=== PATIENT | female | born 1995 ===

== ENCOUNTER 2016-11-11 19:10 | Emergency (ER) | payer MEDICAID ==
[2016-11-11 19:11] VITALS: BMI 32.3
[2016-11-11] MEDS ORDERED: Sodium Chloride 0.9% 1,000 ML IV ONE (20:03)
--- NOTE | 2016-11-11 20:05 | C.PDOC ---
Chief Complaint (Nursing): Dizziness/Lightheaded Past Medical History Vital Signs: Last Vital Signs Temp 98.9 F 11/11/16 19:15 Pulse 105 H 11/11/16 19:15 Resp 16 11/11/16 19:15 BP 123/83 11/11/16 19:15 Pulse Ox 100 11/11/16 19:15 Family History: States: Unknown Family Hx - Social History Hx Tobacco Use: No Hx Alcohol Use: No Hx Substance Use: No - Immunization History Hx Tetanus Toxoid Vaccination: Yes Hx Influenza Vaccination: No Hx Pneumococcal Vaccination: No ED Course And Treatment O2 Sat by Pulse Oximetry: 100
--- NOTE | 2016-11-11 20:07 | C.PDOC ---
History Of Present Illness 21 year old female presents to the ED with complaints of dizziness and room- spinning sensation beginning five hours ago. Patient notes nausea but denies headache or vomiting. Chief Complaint (Nursing): Dizziness/Lightheaded History Per: Patient History/Exam Limitations: no limitations Onset/Duration Of Symptoms: Hrs Current Symptoms Are (Timing): Still Present Past Medical History Reviewed: Historical Data, Nursing Documentation, Vital Signs Vital Signs: Last Vital Signs Temp 98.9 F 11/11/16 19:15 Pulse 105 H 11/11/16 19:15 Resp 16 11/11/16 19:15 BP 123/83 11/11/16 19:15 Pulse Ox 100 11/11/16 21:04 Family History: States: Unknown Family Hx - Social History Hx Tobacco Use: No Hx Alcohol Use: No Hx Substance Use: No - Immunization History Hx Tetanus Toxoid Vaccination: Yes Hx Influenza Vaccination: No Hx Pneumococcal Vaccination: No Review Of Systems Constitutional: Negative for: Fever, Chills Gastrointestinal: Positive for: Nausea. Negative for: Vomiting, Abdominal Pain , Diarrhea Neurological: Positive for: Dizziness. Negative for: Headache Physical Exam - Physical Exam Appears: Non-toxic, No Acute Distress Skin: Warm, Dry Head: Normacephalic Eye(s): bilateral: Other (some nystagmus ) Ear(s): Bilateral: Normal Neck: Normal ROM, Supple Chest: Symmetrical, No Deformity Cardiovascular: Rhythm Regular, No Murmur Respiratory: No Accessory Muscle Use, No Rales, No Rhonchi, No Stridor, No Wheezing Gastrointestinal/Abdominal: No Soft, No Tenderness, No Distention, No Guarding, No Rebound Extremity: Normal ROM, No Tenderness Neurological/Psych: Oriented x3, Other (no focal deficits) ED Course And Treatment - Laboratory Results Result Diagrams: 11/11/16 20:33 11/11/16 20:33 ECG: Interpreted By Me, Viewed By Me ECG Rhythm: Sinus Tachycardia ECG Interpretation: No Acute Changes, Abnormal Interpretation Of ECG: presence of Q wave in inferior leads, abnormal tracings Rate From EC O2 Sat by Pulse Oximetry: 100 Pulse Ox Interpretation: Normal Progress Note: [facility]. [facility]. Final Radiology Report [id number]. Name: MATTHEW MCWILLIAMS Age: 21Years F Date: 11/11/2016. SSN: [id number] : 1995. Study: CT HEAD WO Requesting Physician: Tommy Davenport. Images: 181. Addl Studies: Provided Clinical History: Headache. CONFIDENTIALITY STATEMENT. This transmission is confidential and is intended to be a privileged communication. It is intended only for the use of the addressee. Access to this. message by anyone else is unauthorized. If you are not the intended recipient, any disclosure, copying, distribution or any action taken, or omitted to. be taken in reliance on it is prohibited and may be unlawful. If you received this communication in error, please notify us by telephone, so that return. of this document to us can be arranged. Page 1 of 2. EXAM: CT Head Without Intravenous Contrast. CLINICAL HISTORY: 21 years old, female; Pain; Headache; Headache not specified. TECHNIQUE: Axial computed tomography images of the head/brain without intravenous contrast. This CT exam. was performed using one or more of the following dose reduction techniques: automated exposure. control , adjustment of the mA and/or kV according to patient size, and/or use of iterative. reconstruction technique. COMPARISON: No relevant prior studies available. FINDINGS: Brain: No intracranial hemorrhage. No mass. No definite edema. Ventricles: No hydrocephalus. Bones/joints: No acute fracture. Soft tissues: Unremarkable. Sinuses: No acute sinusitis. Mastoid air cells: No mastoid effusion. Orbits: Unremarkable as visualized. IMPRESSION: 1. No acute intracranial abnormality. 2. Incidental/non-acute findings are described above. [facility]. [facility]. Final Radiology Report [id number]. Name: MATTHEW MCWILLIAMS Age: 21Years F Date: 11/11/2016. SSN : [id number] : 1995. Study: CT HEAD WO Requesting Physician: Tommy Davenport. Images: 181. Addl Studies: Provided Clinical History: Headache. CONFIDENTIALITY STATEMENT. This transmission is confidential and is intended to be a privileged communication. It is intended only for the use of the addressee. Access to this. message by anyone else is unauthorized. If you are not the intended recipient, any disclosure, copying, distribution or any action taken, or omitted to. be taken in reliance on it is prohibited and may be unlawful. If you received this communication in error, please notify us by telephone, so that return. of this document to us can be arranged. Page 2 of 2. Thank you for allowing us to participate in the care of your patient. Dictated and Authenticated by: yK Ross MD. 2016 9:00 PM Eastern Time ([place] & [place]) Disposition Counseled Patient/Family Regarding: Diagnosis - Disposition Referrals: [facility] [Outside] Disposition: HOME/ ROUTINE Disposition Time: 21:54 Condition: STABLE Prescriptions: Meclizine [Antivert] 25 mg PO Q6 #30 tab Instructions: Vertigo (ED) - POA Present On Arrival: None - Clinical Impression Clinical Impression: Vertigo - Scribe Statement The provider has reviewed the documentation as recorded by the Scribe Johanna Banks All medical record entries made by the Scribe were at my direction and personally dictated by me. I have reviewed the chart and agree that the record accurately reflects my personal performance of the history, physical exam, medical decision making, and the department course for this patient. I have also personally directed, reviewed, and agree with the discharge instructions and disposition.
[2016-11-11] MEDS ORDERED: Sodium Chloride 0.9% 1,000 ML ONE (20:31)
[2016-11-11 20:39] LABS: BASO % 0.8 % (0.0-2.0); EOS # 0.1 K/uL (0.0-0.7); EOS % 2.8 % (0.0-4.0); HEMATOCRIT 38.6 % (34.0-47.0); LYMPH # 0.9 K/uL (1.0-4.3); LYMPH % 17.6 % (20.0-40.0); MEAN CELL VOLUME 83.1 fL (81.0-99.0); MEAN CORPUSCULAR HEMOGLOBIN 26.7 pg (27.0-31.0); MEAN CORPUSCULAR HGB CONC 32.2 g/dL (33.0-37.0); MEAN PLATELET VOLUME 9.4 fL (7.2-11.7); MONO # 0.7 K/uL (0.0-0.8); MONO % 13.5 % (0.0-10.0); RED CELL DISTRIBUTION WIDTH 13.7 % (11.5-14.5); WHITE BLOOD COUNT 5.3 K/uL (4.8-10.8)
[2016-11-11 20:47] LABS: CHLORIDE 100 mmol/L (98-107); POTASSIUM 3.7 mmol/L (3.6-5.2); SODIUM 140 mmol/L (132-148)
[2016-11-11 20:49] LABS: ALB/GLOB RATIO 1.2 (1.0-2.1); ALKALINE PHOSPHATASE 63 U/L (38-126); AST/SGOT 24 U/L (14-36); BILIRUBIN,TOTAL 0.2 mg/dL (0.2-1.3); CARBON DIOXIDE 24 mmol/L (22-30); GFR AFRICAN-AMERICAN > 60; TOTAL PROTEIN 8.1 g/dL (6.3-8.3)
[2016-11-11 20:50] LABS: ALT/SGPT 33 U/L (9-52); BLOOD UREA NITROGEN 15 mg/dL (7-17); CALCIUM 8.8 mg/dl (8.6-10.4); GLUCOSE,RANDOM 75 mg/dL (65-105)
--- NOTE | 2016-11-11 21:01 | CT ---
EXAM: CT Head Without Intravenous Contrast CLINICAL HISTORY: 21 years old, female; Pain; Headache; Headache not specified TECHNIQUE: Axial computed tomography images of the head/brain without intravenous contrast. This CT exam was performed using one or more of the following dose reduction techniques: automated exposure control, adjustment of the mA and/or kV according to patient size, and/or use of iterative reconstruction technique. COMPARISON: No relevant prior studies available. FINDINGS: Brain: No intracranial hemorrhage. No mass. No definite edema. Ventricles: No hydrocephalus. Bones/joints: No acute fracture. Soft tissues: Unremarkable. Sinuses: No acute sinusitis. Mastoid air cells: No mastoid effusion. Orbits: Unremarkable as visualized. IMPRESSION: 1. No acute intracranial abnormality. 2. Incidental/non-acute findings are described above.
[2016-11-11 22:22] VITALS: BP 117/77; PULSE 100; RESP 18; TEMP 99.4; O2SAT 99
--- NOTE | 2016-11-12 23:15 | CARD ---
APPROVED REPORT EKG Measurement Heart [id number] <Conclusion> Sinus tachycardia Rightward axis Cannot rule out Inferior infarct, age undetermined Abnormal ECG
== END 2016-11-11 22:21 | disposition home or self-care (01) ==
LOC: C.ER 19:10
DX: R42 Dizziness and giddiness (principal)
CPT/HCPCS: 70450; 80053; 84484; 84703; 85025; 85378; 93005; 96374; 99285; J2060; J2405; J7040

== ENCOUNTER 2016-12-20 10:07 | Emergency (ER) | payer MEDICAID ==
[2016-12-20 10:07] VITALS: BMI 32.3
[2016-12-20 10:13] VITALS: BP 113/67; RESP 18; O2SAT 100
--- NOTE | 2016-12-20 10:37 | C.PDOC ---
History Of Present Illness 21 yr old female presents to the ER stating while working out last night she sustained a twisting injury to the right ankle. Patient reports she still has pain while walking this morning. Patient denies back pain, leg pain, weakness or numbness. Time Seen by Provider: 12/20/16 10:29 Chief Complaint (Nursing): Lower Extremity Problem/Injury History Per: Patient History/Exam Limitations: no limitations Onset/Duration Of Symptoms: Sudden Onset (Last Night) Current Symptoms Are (Timing): Still Present Past Medical History Reviewed: Historical Data, Nursing Documentation, Vital Signs Vital Signs: Last Vital Signs Temp 98.2 F 12/20/16 10:10 Pulse 78 12/20/16 10:10 Resp 18 12/20/16 10:10 BP 113/67 12/20/16 10:10 Pulse Ox 100 12/20/16 10:40 - Medical History PMH: No Chronic Diseases Family History: States: No Known Family Hx - Social History Hx Tobacco Use: No Hx Alcohol Use: No Hx Substance Use: No Review Of Systems Except As Marked, All Systems Reviewed And Found Negative. Musculoskeletal: Positive for: Other ((+) Right ankle pain ). Negative for: Back Pain, Leg Pain Neurological: Negative for: Weakness, Numbness Physical Exam - Physical Exam Appears: Well, Non-toxic, No Acute Distress Skin: Warm, Dry, No Rash Head: Atraumatic, Normacephalic Extremity: Normal ROM, No Calf Tenderness, Other (Right Ankle - Tenderness and swelling to the lateral malleolus.) Pulses: Left Dorsalis Pedis: Normal, Right Dorsalis Pedis: Normal Neurological/Psych: Oriented x3, Normal Speech, Normal Cognition, Normal Motor ED Course And Treatment O2 Sat by Pulse Oximetry: 100 - Other Rad ankle X-Ray: Interpreted by Me (no fx) Progress Note: Patient was offered pain medication but declined. Medical Decision Making Medical Decision Making: PLAN: * X-Ray - Left Ankle * declined pain meds xray neg symptomatic tx aircast otc motrin Disposition - Disposition Disposition: HOME/ ROUTINE Disposition Time: 10:57 Condition: GOOD Instructions: Ankle Sprain (ED), Ankle Exercises (GEN), Ankle Stirrup Splint ( ED) Forms: Work Excuse - Clinical Impression Clinical Impression: Sprained ankle - Scribe Statement The provider has reviewed the documentation as recorded by the Scribe (Shalini) Anjali Terrance Provider Attestation: All medical record entries made by the Doreenibe were at my direction and personally dictated by me. I have reviewed the chart and agree that the record accurately reflects my personal performance of the history, physical exam, medical decision making, and the department course for this patient. I have also personally directed, reviewed, and agree with the discharge instructions and disposition.
[2016-12-20 11:22] VITALS: PULSE 70; TEMP 97.6
--- NOTE | 2016-12-20 11:39 | RAD ---
PROCEDURE: Left Ankle Radiographs. HISTORY: fall / twisting lateral tenderness COMPARISON: None FINDINGS: BONES: Os trigonum present. No fracture. JOINTS: Normal. No osteoarthritis. Ankle mortise maintained. Talar dome intact SOFT TISSUES: Mild inferolateral hindfoot soft tissue swelling OTHER FINDINGS: None. IMPRESSION: No fracture. Soft tissue swelling
== END 2016-12-20 11:28 | disposition home or self-care (01) ==
LOC: C.ER 10:07
DX: S93.401A Sprain of unspecified ligament of right ankle, initial encounter (principal); X58.XXXA Exposure to other specified factors, initial encounter

== ENCOUNTER 2017-03-04 15:37 | Emergency (ER) | payer MEDICAID ==
[2017-03-04 15:37] VITALS: BMI 32.3
[2017-03-04 15:42] VITALS: BP 121/75; PULSE 86; RESP 18; TEMP 98; O2SAT 98
[2017-03-04] MEDS ORDERED: Alum-Mag Hydrox-Simethicone Susp (30 mL) PO STA (15:50)
[2017-03-04 16:12] LABS: BASO # 0.1 K/uL (0.0-0.2); BASO % 0.6 % (0.0-2.0); EOS # 0.1 K/uL (0.0-0.7); EOS % 1.1 % (0.0-4.0); HEMOGLOBIN 12.4 g/dL (11.0-16.0); LYMPH # 2.3 K/uL (1.0-4.3); LYMPH % 19.1 % (20.0-40.0); MEAN CELL VOLUME 82.9 fL (81.0-99.0); MEAN CORPUSCULAR HEMOGLOBIN 27.9 pg (27.0-31.0); MEAN CORPUSCULAR HGB CONC 33.7 g/dL (33.0-37.0); MEAN PLATELET VOLUME 9.5 fL (7.2-11.7); MONO # 0.8 K/uL (0.0-0.8); MONO % 6.4 % (0.0-10.0); NEUT # 8.6 K/uL (1.8-7.0); NEUT % 72.8 % (50.0-75.0); NRBC % 0.1 % (0.0-2.0); RBC 4.44 Mil/uL (3.80-5.20); RED CELL DISTRIBUTION WIDTH 14.2 % (11.5-14.5); WHITE BLOOD COUNT 11.8 K/uL (4.8-10.8)
--- NOTE | 2017-03-04 16:16 | C.PDOC ---
History Of Present Illness Patient is a 21 y/o F presenting with epigastric pain. Patient reports that last night at 1 am she developed a burning epigastric pain. She reports that it resolved after 1 hour. She reports that after eating chicken and pasta this morning she had reoccurence of pain. She reports that the pain has now resolved. Reports scant nausea. Denies fever, vomiting, diarrhea/constipation, dysuria, vaginal bleeding or discharge. Time Seen by Provider: 03/04/17 15:43 Chief Complaint (Nursing): Abdominal Pain Past Medical History Vital Signs: Last Vital Signs Temp 98.0 F 03/04/17 15:39 Pulse 86 03/04/17 15:39 Resp 18 03/04/17 15:39 BP 121/75 03/04/17 15:39 Pulse Ox 98 03/04/17 16:55 Surgical History: Family History: States: No Known Family Hx - Social History Hx Tobacco Use: No Hx Alcohol Use: No Hx Substance Use: No - Immunization History Hx Tetanus Toxoid Vaccination: No Hx Influenza Vaccination: No Hx Pneumococcal Vaccination: No Review Of Systems Constitutional: Negative for: Fever, Chills Cardiovascular: Negative for: Chest Pain, Palpitations, Orthopnea, Edema, Light Headedness Respiratory: Negative for: Cough, Shortness of Breath, SOB with Excertion, Wheezing Gastrointestinal: Positive for: Nausea, Abdominal Pain (epigastric). Negative for: Vomiting, Diarrhea, Constipation Genitourinary: Negative for: Dysuria Neurological: Negative for: Weakness, Numbness Physical Exam - Physical Exam Appears: Well, Non-toxic, No Acute Distress Skin: Normal Color, Warm, Dry Head: Atraumatic, Normacephalic Eye(s): bilateral: Normal Inspection, PERRL, EOMI Neck: Supple Chest: Symmetrical Cardiovascular: Rhythm Regular Respiratory: Normal Breath Sounds, No Rales, No Rhonchi, No Stridor, No Wheezing Gastrointestinal/Abdominal: Soft, No Tenderness, No Mass, No Distention Back: Normal Inspection, No CVA Tenderness Extremity: Normal ROM ED Course And Treatment - Laboratory Results Result Diagrams: 03/04/17 16:08 03/04/17 16:08 O2 Sat by Pulse Oximetry: 98 Medical Decision Making Medical Decision Making: EKG shows sinus bradycardia at 59bpm. Cxray negative. CBC and CMP grossly normal. UA shows uti. Patient is tolerating po. She has soft NT/ND abdomen and has not had recurrence of pain in ED. Disposition - Disposition Referrals: Dipesh Macario MD [Staff Provider] - Disposition: HOME/ ROUTINE Disposition Time: 16:40 Condition: GOOD Additional Instructions: Follow up with PMD within 2 days. Follow-up with GI. Take full course of antibotics. Prescriptions: Nitrofurantoin Macrocrystals [Macrobid] 100 mg PO BID #10 cap Instructions: Urinary Tract Infection in Women (ED), Diet for Ulcers and Gastritis (ED) Forms: Gen Discharge Inst Malaysian Print Language: FILIPINO - Clinical Impression Clinical Impression: UTI (urinary tract infection), Epigastric abdominal pain
[2017-03-04] MEDS ORDERED: Aluminum Hydroxide/Magnesium Hydroxide Susp (30 mL) ONE (16:18)
[2017-03-04 16:19] LABS: ALBUMIN 4.3 g/dL (3.5-5.0)
[2017-03-04 16:20] LABS: SQUAMOUS EPITHIAL 8 /hpf (0-5); URINE BACTERIA MANY (<OCC); URINE BILIRUBIN NEGATIVE (NEGATIVE); URINE BLOOD NEGATIVE (NEGATIVE); URINE CLARITY Hazy (Clear); URINE COLOR Yellow (YELLOW); URINE GLUCOSE (UA) NORMAL (Normal); URINE LEUKOCYTE ESTERASE 1+ Leu/uL (Negative); URINE NITRATE POSITIVE (NEGATIVE); URINE PROTEIN NEGATIVE (NEGATIVE)
[2017-03-04 16:22] LABS: ALB/GLOB RATIO 1.2 (1.0-2.1); AST/SGOT 38 U/L (14-36); GFR AFRICAN-AMERICAN > 60; GFR NON-AFRICAN AMERICAN > 60
[2017-03-04 16:23] LABS: ALT/SGPT 34 U/L (9-52); BLOOD UREA NITROGEN 17 mg/dL (7-17); CALCIUM 9.2 mg/dl (8.6-10.4); LIPASE 75 U/L (23-300)
--- NOTE | 2017-03-04 16:38 | RAD ---
HISTORY: epigastric pain COMPARISON: None available TECHNIQUE: Chest PA and lateral FINDINGS: Emanation limited by habitus. LUNGS: No focal consolidation. Please note that chest x-ray has limited sensitivity for the detection of pulmonary masses. PLEURA: No significant pleural effusion identified. No definite pneumothorax . CARDIOVASCULAR: The cardiomediastinal silhouette appears within normal limits of size. OSSEOUS STRUCTURES: No acute osseous abnormality identified. VISUALIZED UPPER ABDOMEN: Unremarkable. OTHER FINDINGS: None. IMPRESSION: No focal consolidation, significant pleural effusion, or definite pneumothorax identified.
--- NOTE | 2017-03-06 09:03 | CARD ---
APPROVED REPORT EKG Measurement Heart [id number] [id number] <Conclusion> Sinus bradycardia Otherwise normal ECG
== END 2017-03-04 17:00 | disposition home or self-care (01) ==
LOC: C.ER 15:37
DX: N39.0 Urinary tract infection, site not specified (principal); R10.13 Epigastric pain
CPT/HCPCS: 71020; 80053; 81001; 83690; 85025; 96374; 96375; 99284; J2765

== ENCOUNTER 2018-01-22 12:12 | Emergency (ER) | payer MEDICAID ==
[2018-01-22 12:12] VITALS: BMI 32.3
[2018-01-22 12:18] VITALS: RESP 18; TEMP 99.3
--- NOTE | 2018-01-22 13:39 | C.PDOC ---
History Of Present Illness 22 y/o female presents to ED with complaints of numbness to legs, toes, fingers and stomach for 6 days after taking Flagyl. Patient was prescribed Flagyl from OBGYN for possible vaginal infection. Patient last dose of flagyl was 4 days ago and currently admits to sob on exertion, denies fever, chills, abdominal pain, weakness, change in vision or any other complaints at this time. Time Seen by Provider: 01/22/18 12:37 Chief Complaint (Nursing): Weakness/Neurological Deficit History Per: Patient History/Exam Limitations: no limitations Onset/Duration Of Symptoms: Days Current Symptoms Are (Timing): Still Present Past Medical History Reviewed: Historical Data, Nursing Documentation, Vital Signs Vital Signs: Last Vital Signs Temp 99.3 F 01/22/18 12:16 Pulse 67 01/22/18 14:53 Resp 18 01/22/18 14:53 BP 107/69 01/22/18 14:53 Pulse Ox 100 01/22/18 14:53 - Medical History PMH: No Chronic Diseases Surgical History: Family History: States: No Known Family Hx - Social History Hx Tobacco Use: No Hx Alcohol Use: No Hx Substance Use: No - Immunization History Hx Tetanus Toxoid Vaccination: No Hx Influenza Vaccination: No Hx Pneumococcal Vaccination: No Review Of Systems Constitutional: Negative for: Fever, Chills Cardiovascular: Negative for: Chest Pain Respiratory: Positive for: SOB with Excertion Gastrointestinal: Negative for: Nausea, Vomiting Skin: Negative for: Rash Neurological: Positive for: Numbness. Negative for: Weakness Physical Exam - Physical Exam Appears: Non-toxic, No Acute Distress Skin: Warm, Dry, No Rash Head: Atraumatic, Normacephalic Eye(s): bilateral: Normal Inspection, PERRL, EOMI Oral Mucosa: Moist Throat: No Erythema, No Exudate Neck: Normal ROM, Supple Chest: Symmetrical Cardiovascular: Rhythm Regular, No Friction Rub, No Murmur Respiratory: Normal Breath Sounds, No Rales, No Rhonchi, No Wheezing Gastrointestinal/Abdominal: Soft, No Tenderness, No Guarding, No Rebound Back: Normal Inspection, No CVA Tenderness Extremity: Normal ROM, No Pedal Edema, Capillary Refill (<2 seconds) Neurological/Psych: Oriented x3, Normal Speech, Normal Cognition, Normal Cranial Nerves, Normal Motor, Normal Sensation Gait: Steady ED Course And Treatment - Laboratory Results Result Diagrams: 01/22/18 13:53 01/22/18 13:53 O2 Sat by Pulse Oximetry: 99 (RA) Pulse Ox Interpretation: Normal Medical Decision Making Medical Decision Making: On re-exam, the patient reports improvement of symptoms. Patient has normal neuro exam with no focal deficit. Lungs are CTA, heart is RRR, ambulatory in the ED wiith steady gait, Abdomen is soft, non-tender and tolerating PO well. Follow up with the medical doctor/clinic within 1-2 days, Return if worsened. Disposition - Disposition Referrals: Jordana Freeman [Staff Provider] - Disposition: HOME/ ROUTINE Disposition Time: 14:31 Condition: GOOD Additional Instructions: Follow up with the medical doctor within 1-2 days. Return if worsened. 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 - Scribe Statement The provider has reviewed the documentation as recorded by the Doreenibbishnu Valenzuela All medical record entries made by the Uri were at my direction and personally dictated by me. I have reviewed the chart and agree that the record accurately reflects my personal performance of the history, physical exam, medical decision making, and the department course for this patient. I have also personally directed, reviewed, and agree with the discharge instructions and disposition.
[2018-01-22 13:57] LABS: BASO # 0.1 K/uL (0.0-0.2); BASO % 0.6 % (0.0-2.0); EOS # 0.1 K/uL (0.0-0.7); EOS % 1.4 % (0.0-4.0); HEMOGLOBIN 12.5 g/dL (11.0-16.0); LYMPH % 24.6 % (20.0-40.0); MEAN CELL VOLUME 83.5 fL (81.0-99.0); MEAN CORPUSCULAR HEMOGLOBIN 28.3 pg (27.0-31.0); MEAN CORPUSCULAR HGB CONC 33.9 g/dL (33.0-37.0); MONO # 0.7 K/uL (0.0-0.8); MONO % 8.2 % (0.0-10.0); NEUT # 5.4 K/uL (1.8-7.0); NEUT % 65.2 % (50.0-75.0); NRBC % 0.1 % (0.0-2.0); RBC 4.43 Mil/uL (3.80-5.20); RED CELL DISTRIBUTION WIDTH 13.9 % (11.5-14.5); WHITE BLOOD COUNT 8.3 K/uL (4.8-10.8)
[2018-01-22 14:00] LABS: HCG,QUALITATIVE URINE NEGATIVE (NEGATIVE)
[2018-01-22 14:05] LABS: SQUAMOUS EPITHIAL 2 /hpf (0-5); URINE BACTERIA RARE (<OCC); URINE BILIRUBIN NEGATIVE (NEGATIVE); URINE BLOOD NEGATIVE (NEGATIVE); URINE CLARITY Clear (Clear); URINE COLOR Yellow (YELLOW); URINE GLUCOSE (UA) NORMAL (Normal); URINE LEUKOCYTE ESTERASE NEG Leu/uL (Negative); URINE PROTEIN NEGATIVE (NEGATIVE)
[2018-01-22 14:17] LABS: CALCIUM 8.9 mg/dl (8.6-10.4); GFR AFRICAN-AMERICAN > 60; GFR NON-AFRICAN AMERICAN > 60
[2018-01-22 14:21] LABS: ALB/GLOB RATIO 1.2 (1.0-2.1); ALBUMIN 4.5 g/dL (3.5-5.0); ALT/SGPT 26 U/L (9-52); AST/SGOT 37 U/L (14-36); BLOOD UREA NITROGEN 16 mg/dL (7-17)
[2018-01-22 14:54] VITALS: BP 107/69; PULSE 67
[2018-01-23 14:36] VITALS: O2SAT 99
== END 2018-01-22 14:55 | disposition home or self-care (01) ==
LOC: C.ER 12:12
DX: T88.7XXA Unspecified adverse effect of drug or medicament, initial encounter (principal); T50.995A Adverse effect of other drugs, medicaments and biological substances, initial encounter; Y92.89 Other specified places as the place of occurrence of the external cause

== ENCOUNTER 2018-03-17 13:03 | Emergency (ER) | payer MEDICAID ==
[2018-03-17 13:04] VITALS: BMI 32.3
--- NOTE | 2018-03-17 13:49 | C.PDOC ---
History Of Present Illness <Mona Nayak - Last Filed: 03/17/18 14:32> <[place] - Last Filed: 03/17/18 15:27> 22 year old female with no past medical history presents to the ER with chest pain radiating to her upper abdomen. Patient states the pain started this morning hours after eating breakfast. She states the pain feels sharp and diffuse over her chest. She states when she breathes the pain is made worse. She denies shortness of breath, palpitations, nausea, vomiting, diarrhea, constipation, blood in her stool or dysuria. She states this occurred 9 months ago with similar symptoms but was more painful at that time. Patient was instructed to follow up with a GI specialist but she states she never did. ( Mona Nayak) <Mona Nayak - Last Filed: 03/17/18 14:32> <[place] - Last Filed: 03/17/18 15:27> Time Seen by Provider: 03/17/18 13:18 Chief Complaint (Nursing): Chest Pain Past Medical History Surgical History: Family History: States: Unknown Family Hx - Social History Hx Tobacco Use: No Hx Alcohol Use: No Hx Substance Use: No - Immunization History Hx Tetanus Toxoid Vaccination: No Hx Influenza Vaccination: No Hx Pneumococcal Vaccination: No <Mona Nayak - Last Filed: 03/17/18 14:32> Vital Signs: Last Vital Signs Temp 98.4 F 03/17/18 13:08 Pulse 100 H 03/17/18 13:08 Resp 18 03/17/18 13:08 BP 136/89 03/17/18 13:08 Pulse Ox 100 03/17/18 14:36 Review Of Systems Constitutional: Negative for: Fever Cardiovascular: Positive for: Chest Pain. Negative for: Palpitations, Edema, Light Headedness Gastrointestinal: Positive for: Abdominal Pain. Negative for: Nausea, Vomiting , Constipation, Melena, Hematochezia Genitourinary: Negative for: Dysuria <Mona Nayak - Last Filed: 03/17/18 14:32> Physical Exam - Physical Exam Appears: Non-toxic Skin: Normal Color Head: Atraumatic, Normacephalic Eye(s): bilateral: Normal Inspection, PERRL, EOMI Chest: Tenderness (tender to palpation ) Cardiovascular: Rhythm Regular Respiratory: Normal Breath Sounds, No Accessory Muscle Use, No Rales, No Stridor Gastrointestinal/Abdominal: Normal Exam, Soft, Tenderness (epigastric tenderness ), No Organomegaly, No Mass, No Distention, No Guarding Extremity: No Pedal Edema, No Calf Tenderness Neurological/Psych: Oriented x3 <Mona Nayak - Last Filed: 03/17/18 14:32> ED Course And Treatment - Laboratory Results Result Diagrams: 03/17/18 14:13 03/17/18 14:13 Urine POC: Negative ECG: Interpreted By Me, Viewed By Me ECG Rhythm: Sinus Rhythm O2 Sat by Pulse Oximetry: 100 <Mona Nayak - Last Filed: 03/17/18 14:32> - Laboratory Results Result Diagrams: 03/17/18 14:13 03/17/18 14:13 <[place] - Last Filed: 03/17/18 15:27> Medical Decision Making <Mona Nayak - Last Filed: 03/17/18 14:32> <[place] - Last Filed: 03/17/18 15:27> Medical Decision Making: Lipase: 80 CBC: WNL CMP: WNL UA: Negative (Mona Nayak) cxr - prel. reading nad ([place]) Disposition Discussed With Dr.: [place] Doctor Will See Patient In The: ED - Disposition Disposition Time: 14:32 <Mona Nayak - Last Filed: 03/17/18 14:32> <[place] - Last Filed: 03/17/18 15:27> - Disposition Referrals: Jordana Freeman [Staff Provider] - Disposition: HOME/ ROUTINE Condition: IMPROVED Additional Instructions: follow up with medical clinic within 2 days you must call to make an appointment take medication as needed for pain return to ER if symptoms worsens or progress Prescriptions: Famotidine [Pepcid] 20 mg PO BID #60 tab Instructions: Costochondritis (DC), Dyspepsia Forms: General Discharge Instructions, [email or web address] ([place]), Work Excuse Print Language: CHADIAN - Clinical Impression Clinical Impression: Epigastric abdominal pain, Gastritis - PA / MANAGER CODE / Resident Statement MD/DO has reviewed & agrees with the documentation as recorded. MD/DO has examined the patient and agrees with the treatment plan. <Mona Nayak - Last Filed: 03/17/18 14:32>
[2018-03-17 14:16] LABS: BASO % 0.5 % (0.0-2.0); EOS # 0.1 K/uL (0.0-0.7); EOS % 0.9 % (0.0-4.0); HEMOGLOBIN 13.8 g/dL (11.0-16.0); LYMPH # 1.4 K/uL (1.0-4.3); LYMPH % 16.6 % (20.0-40.0); MEAN CELL VOLUME 85.3 fL (81.0-99.0); MEAN CORPUSCULAR HEMOGLOBIN 28.5 pg (27.0-31.0); MEAN CORPUSCULAR HGB CONC 33.4 g/dL (33.0-37.0); MEAN PLATELET VOLUME 9.7 fL (7.2-11.7); MONO # 0.5 K/uL (0.0-0.8); MONO % 5.6 % (0.0-10.0); NEUT # 6.4 K/uL (1.8-7.0); NEUT % 76.4 % (50.0-75.0); NRBC % 0.1 % (0.0-2.0); RBC 4.84 Mil/uL (3.80-5.20); RED CELL DISTRIBUTION WIDTH 14.6 % (11.5-14.5); WHITE BLOOD COUNT 8.4 K/uL (4.8-10.8)
[2018-03-17 14:21] LABS: SQUAMOUS EPITHIAL < 1 /hpf (0-5); URINE BACTERIA RARE (<OCC); URINE BILIRUBIN NEGATIVE (NEGATIVE); URINE BLOOD NEGATIVE (NEGATIVE); URINE CLARITY Clear (Clear); URINE COLOR Yellow (YELLOW); URINE GLUCOSE (UA) NORMAL (Normal); URINE LEUKOCYTE ESTERASE NEG Leu/uL (Negative); URINE PROTEIN NEGATIVE (NEGATIVE); URINE UROBILINOGEN NORMAL mg/dL (0.2-1.0)
[2018-03-17 14:30] LABS: ALB/GLOB RATIO 1.4 (1.0-2.1); ALBUMIN 4.8 g/dL (3.5-5.0); ALT/SGPT 40 U/L (9-52); AST/SGOT 27 U/L (14-36); BLOOD UREA NITROGEN 17 mg/dL (7-17); CALCIUM 9.8 mg/dl (8.6-10.4); GFR AFRICAN-AMERICAN > 60; GFR NON-AFRICAN AMERICAN > 60; LIPASE 80 U/L (23-300)
[2018-03-17 15:32] VITALS: BP 107/67; PULSE 70; RESP 16; TEMP 98.7; O2SAT 99
--- NOTE | 2018-03-17 15:47 | RAD ---
Chest x-ray two views History: Chest pain. Comparison: 03/04/2017 Findings: No focal infiltrate or effusion. Heart size within normal limits. Bibasilar breast and nipple shadows. Impression: No focal infiltrate or effusion.
== END 2018-03-17 16:11 | disposition home or self-care (01) ==
LOC: C.ER 13:03
DX: K29.70 Gastritis, unspecified, without bleeding (principal); R10.13 Epigastric pain
CPT/HCPCS: 71046; 80053; 81001; 83690; 85025; 93005; 96374; 99284; J1885

== ENCOUNTER 2018-08-19 16:16 | Emergency (ER) | payer MEDICAID ==
[2018-08-19 16:16] VITALS: BMI 32.3
[2018-08-19 16:26] VITALS: TEMP 98.1
--- NOTE | 2018-08-19 16:43 | C.PDOC ---
History Of Present Illness 23 y/o female, approximately 12 weeks , presents to the ED for vaginal spotting that began today. She denies any associated abdominal pain. Patient is , reports she has had an outpatient US showing + IUP. Otherwise denies any nausea, vomiting, fever, chills, or vaginal discharge. Time Seen by Provider: 08/19/18 16:29 Chief Complaint (Nursing): Female Genitourinary History Per: Patient History/Exam Limitations: no limitations Onset/Duration Of Symptoms: Hrs Current Symptoms Are (Timing): Still Present Past Medical History Reviewed: Historical Data, Nursing Documentation, Vital Signs Vital Signs: Last Vital Signs Temp 98.1 F 08/19/18 16:24 Pulse 74 08/19/18 16:24 Resp 20 08/19/18 16:24 BP 122/80 08/19/18 16:24 Pulse Ox 96 08/19/18 16:24 Surgical History: Family History: States: Unknown Family Hx - Social History Hx Tobacco Use: No Hx Alcohol Use: No Hx Substance Use: No - Immunization History Hx Tetanus Toxoid Vaccination: No Hx Influenza Vaccination: No Hx Pneumococcal Vaccination: No Review Of Systems Except As Marked, All Systems Reviewed And Found Negative. Constitutional: Negative for: Fever, Chills Gastrointestinal: Negative for: Nausea, Vomiting, Abdominal Pain Genitourinary: Positive for: Vaginal Bleeding. Negative for: Dysuria, Vaginal Discharge Skin: Negative for: Rash Neurological: Negative for: Weakness, Numbness Physical Exam - Physical Exam Appears: Non-toxic, No Acute Distress Skin: Warm, Dry Head: Atraumatic, Normacephalic Eye(s): bilateral: Normal Inspection, PERRL, EOMI Oral Mucosa: Moist Neck: Normal ROM Chest: Symmetrical Cardiovascular: Rhythm Regular, No Murmur Respiratory: Normal Breath Sounds, No Accessory Muscle Use, Other (NARD) Gastrointestinal/Abdominal: Soft, No Tenderness, No Distention, No Guarding Back: No CVA Tenderness Extremity: Bilateral: Atraumatic, Normal Color And Temperature Pulses: Left Radial: Normal, Right Radial: Normal Neurological/Psych: Oriented x3, Normal Speech ED Course And Treatment - Laboratory Results Result Diagrams: 08/19/18 16:49 08/19/18 16:49 O2 Sat by Pulse Oximetry: 96 (RA) Pulse Ox Interpretation: Normal Medical Decision Making Medical Decision Making: Impression: Vaginal spotting during Plan: - Blood type/screen - CMP - BetaHCG quant - CBC - UA - Transvaginal US Disposition Counseled Patient/Family Regarding: Studies Performed, Diagnosis, Need For Foll owup, Rx Given - Disposition Referrals: YOUR,OBGYN [Other] Disposition: HOME/ ROUTINE Disposition Time: 18:18 Condition: GOOD Instructions: Threatened Miscarriage (DC) Forms: [employer] (Hungarian) - Clinical Impression Clinical Impression: Threatened - Scribe Statement The provider has reviewed the documentation as recorded by the Uri Ramirez Provider Attestation: All medical record entries made by the Uri were at my direction and personally dictated by me. I have reviewed the chart and agree that the record accurately reflects my personal performance of the history, physical exam, medical decision making, and the department course for this patient. I have also personally directed, reviewed, and agree with the discharge instructions and disposition.
[2018-08-19 17:00] LABS: BASO # 0.1 K/uL (0.0-0.2); BASO % 0.6 % (0.0-2.0); EOS # 0.2 K/uL (0.0-0.7); HEMOGLOBIN 12.8 g/dL (11.0-16.0); LYMPH # 1.8 K/uL (1.0-4.3); LYMPH % 18.4 % (20.0-40.0); MEAN CELL VOLUME 85.4 fL (81.0-99.0); MEAN CORPUSCULAR HEMOGLOBIN 28.7 pg (27.0-31.0); MEAN CORPUSCULAR HGB CONC 33.6 g/dL (33.0-37.0); MEAN PLATELET VOLUME 9.2 fL (7.2-11.7); MONO # 0.6 K/uL (0.0-0.8); MONO % 6.2 % (0.0-10.0); NEUT # 6.9 K/uL (1.8-7.0); NEUT % 72.8 % (50.0-75.0); RBC 4.47 Mil/uL (3.80-5.20); RED CELL DISTRIBUTION WIDTH 13.5 % (11.5-14.5); WHITE BLOOD COUNT 9.5 K/uL (4.8-10.8)
[2018-08-19 17:17] LABS: ALB/GLOB RATIO 1.4 (1.0-2.1); ALBUMIN 4.5 g/dL (3.5-5.0); ALT/SGPT 13 U/L (9-52); AST/SGOT 26 U/L (14-36); BLOOD UREA NITROGEN 13 mg/dL (7-17); CALCIUM 9.1 mg/dl (8.6-10.4); GFR NON-AFRICAN AMERICAN > 60
[2018-08-19 18:03] LABS: SQUAMOUS EPITHIAL 1 /hpf (0-5); URINE BILIRUBIN NEGATIVE (NEGATIVE); URINE BLOOD NEGATIVE (NEGATIVE); URINE CLARITY Clear (Clear); URINE COLOR Straw (YELLOW); URINE GLUCOSE (UA) NORMAL (Normal); URINE LEUKOCYTE ESTERASE NEG Leu/uL (Negative); URINE PROTEIN NEGATIVE (NEGATIVE); URINE UROBILINOGEN NORMAL mg/dL (0.2-1.0)
--- NOTE | 2018-08-19 18:11 | US ---
Date of service: 08/19/2018 Indication: VB RO ECTOPIC Comparison: None available Technique: Transabdominal pelvic ultrasound. Findings: The uterus measures approximately 16.2 x 8.2 x 11.5 cm. Anteverted. Cervix length measures approximately 4.4 cm. There is a single intrauterine fetus present. The gestational sac measures 6.0 cm and is compatible with a gestational age of 12 weeks 1 day. The crown-rump length measures 6.1 cm and is compatible with a gestational age of 12 weeks 4 days. There is heart motion which measured 133.9 BPM. 2.6 x 1.4 x 4.1 cm probable subchorionic hemorrhage. Placenta appears low lying. The right ovary measures 3.2 x 1.9 x 3.7 cm. The left ovary measures 2.7 x 1.6 x 2.6 cm. Flow was demonstrated to both ovaries. Impression: Live single intrauterine with estimated gestational age 12 weeks 4 days by crown-rump length calculation. heart rate 133.9 bpm. Currently, there is evidence of low-lying placenta. Due to placental trophotropism, the diagnosis of the placenta previa is generally not made before 20 weeks gestation. Follow-up ultrasound is recommended. 2.6 x 1.4 x 4.1 cm probable subchorionic hemorrhage. Advise an anomaly screen at 16-18 weeks gestational age
[2018-08-19 18:25] VITALS: BP 115/81; PULSE 78; RESP 16; O2SAT 98
== END 2018-08-19 18:26 | disposition home or self-care (01) ==
LOC: C.ER 16:16
DX: O20.0 Threatened abortion (principal); Z3A.12 12 weeks gestation of pregnancy

== ENCOUNTER 2018-11-15 21:58 | Emergency (ER) | payer MEDICAID ==
[2018-11-15 21:58] VITALS: BMI 32.3
--- NOTE | 2018-11-15 22:48 | C.PDOC ---
History Of Present Illness 23-year-old female, 24 weeks , presents to the emergency department with complaints of right upper quadrant pain which comes and goes sporadically for the last few months. Patient states that her pain is not associated with any activity or movement and is localized to the area. Patient states that she saw her doctor last month and was given a prescription for an ultrasound which she never got done. As of yesterday patient states that the pain is more frequent and constant. Patient denies respiratory symptoms, cough, pelvic issues, vaginal bleeding/discharge, nausea, vomiting, fever, and chills. Patient states that she feels the baby moving. Patient denies taking anything for pain. Time Seen by Provider: 11/15/18 22:14 Chief Complaint (Nursing): Abdominal Pain History Per: Patient History/Exam Limitations: no limitations Onset/Duration Of Symptoms: Intermittent Episodes, Other (months) Current Symptoms Are (Timing): Worse (as of yesterday) Location Of Pain/Discomfort: RUQ Quality Of Discomfort: "Pain" Associated Symptoms: denies: Fever, Chills, Nausea, Vomiting, Diarrhea, Loss Of Appetite, Urinary Symptoms, Other (vaginal bleeding/discharge) Past Medical History Reviewed: Historical Data, Nursing Documentation, Vital Signs Vital Signs: Last Vital Signs Temp 99.1 F 11/15/18 22:05 Pulse 90 11/15/18 22:05 Resp 20 11/15/18 22:05 BP 111/74 11/15/18 22:05 Pulse Ox 98 11/15/18 22:05 - Medical History PMH: No Chronic Diseases Surgical History: Family History: States: No Known Family Hx - Social History Hx Tobacco Use: No Hx Alcohol Use: No Hx Substance Use: No - Immunization History Hx Tetanus Toxoid Vaccination: No Hx Influenza Vaccination: No Hx Pneumococcal Vaccination: No Review Of Systems Constitutional: Negative for: Fever, Chills Respiratory: Negative for: Cough, Shortness of Breath Gastrointestinal: Positive for: Abdominal Pain. Negative for: Nausea, Vomiting, Diarrhea Genitourinary: Negative for: Dysuria, Hematuria, Vaginal Discharge, Vaginal Bleeding, Pelvic Pain Physical Exam - Physical Exam Appears: Non-toxic, No Acute Distress Skin: Normal Color, Warm, Dry Head: Atraumatic, Normacephalic Eye(s): bilateral: Normal Inspection, PERRL, EOMI Nose: Normal Oral Mucosa: Moist Neck: Normal, Supple Chest: Symmetrical, No Tenderness Cardiovascular: Rhythm Regular, No Murmur Respiratory: Normal Breath Sounds, No Rales, No Rhonchi, No Wheezing Gastrointestinal/Abdominal: Soft, No Tenderness, No Guarding, No Rebound, Other (gravid) Extremity: Bilateral: Atraumatic Neurological/Psych: Oriented x3, Normal Speech, Normal Cognition ( ) ED Course And Treatment - Laboratory Results Result Diagrams: 11/15/18 23:07 11/15/18 23:07 Lab Interpretation: No Acute Changes O2 Sat by Pulse Oximetry: 98 (RA) Pulse Ox Interpretation: Normal Reevaluation Time: 23:36 Reassessment Condition: Improved (FH in RLQ rate 140-150) Disposition Counseled Patient/Family Regarding: Studies Performed, Diagnosis, Need For Followup - Disposition Referrals: Lois Nicole MD [Medical Doctor] - Disposition: HOME/ ROUTINE Disposition Time: 23:36 Condition: IMPROVED Additional Instructions: Take Tylenol as needed for pain. Follow up as an out patient to have the prescribed ultrasound performed. Instructions: Stomach Pain in Early Forms: [employer] ([place]an) - Clinical Impression Clinical Impression: with abdominal pain of right upper quadrant, antepartum - Scribe Statement The provider has reviewed the documentation as recorded by the Scribe (Stephane Vail) Provider Attestation: All medical record entries made by the Scribe were at my direction and personally dictated by me. I have reviewed the chart and agree that the record accurately reflects my personal performance of the history, physical exam, medical decision making, and the department course for this patient. I have also personally directed, reviewed, and agree with the discharge instructions and disposition.
[2018-11-15 23:09] LABS: SQUAMOUS EPITHIAL 4 /hpf (0-5); URINE AMORPHOUS SEDIMENT RARE /ul (<OCC); URINE BACTERIA RARE (<OCC); URINE BILIRUBIN NEGATIVE (NEGATIVE); URINE BLOOD NEGATIVE (NEGATIVE); URINE CLARITY Hazy (Clear); URINE COLOR Yellow (YELLOW); URINE GLUCOSE (UA) NORMAL (Normal); URINE LEUKOCYTE ESTERASE NEG Leu/uL (Negative); URINE PROTEIN NEGATIVE (NEGATIVE); URINE UROBILINOGEN NORMAL mg/dL (0.2-1.0)
[2018-11-15 23:10] LABS: BASO % 0.3 % (0.0-2.0); EOS # 0.2 K/uL (0.0-0.7); EOS % 2.2 % (0.0-4.0); HEMOGLOBIN 11.1 g/dL (11.0-16.0); LYMPH # 2.3 K/uL (1.0-4.3); MEAN CELL VOLUME 88.3 fL (81.0-99.0); MEAN CORPUSCULAR HEMOGLOBIN 29.8 pg (27.0-31.0); MEAN CORPUSCULAR HGB CONC 33.8 g/dL (33.0-37.0); MEAN PLATELET VOLUME 8.7 fL (7.2-11.7); MONO # 0.8 K/uL (0.0-0.8); MONO % 7.4 % (0.0-10.0); NEUT # 7.6 K/uL (1.8-7.0); NEUT % 69.1 % (50.0-75.0); RBC 3.74 Mil/uL (3.80-5.20); RED CELL DISTRIBUTION WIDTH 13.8 % (11.5-14.5)
[2018-11-15 23:23] LABS: ALB/GLOB RATIO 1.3 (1.0-2.1); ALBUMIN 3.6 g/dL (3.5-5.0); ALT/SGPT 19 U/L (9-52); AST/SGOT 17 U/L (14-36); BLOOD UREA NITROGEN 7 mg/dL (7-17); GFR NON-AFRICAN AMERICAN > 60; LIPASE 80 U/L (23-300)
[2018-11-16 00:47] VITALS: BP 104/63; PULSE 81; RESP 14; TEMP 98.6; O2SAT 100
== END 2018-11-16 00:05 | disposition home or self-care (01) ==
LOC: C.ER 21:58
DX: O26.892 Other specified pregnancy related conditions, second trimester (principal); R10.11 Right upper quadrant pain; Z3A.24 24 weeks gestation of pregnancy